=== PATIENT | male | born 1995 | race Caucasian/White ===

== ENCOUNTER 2022-03-15 19:53 | Emergency (ER) | payer OTHER ==
[2022-03-15 20:01] VITALS: BP 127/81; PULSE 82; TEMP 98.3; BMI 26.4
== END 2022-03-15 21:26 | disposition home or self-care (01) ==
LOC: JER 19:53
DX: T23.202A Burn of second degree of left hand, unspecified site, initial encounter (principal); X10.2XXA Contact with fats and cooking oils, initial encounter
CPT/HCPCS: 99283-25

== ENCOUNTER 2024-01-06 08:01 | Emergency (ER) | payer OTHER ==
[2024-01-06 08:19] VITALS: BP 138/87; PULSE 81; RESP 20; TEMP 97.8; BMI 26.4
[2024-01-06] MEDS ORDERED: MAG HYDROX/AL HYDROX/SIMETH 30 ML UNIT-DOSE CUP ONE (08:23)
[2024-01-06] MEDS ORDERED: FAMOTIDINE 20 MG TABLET ONE (08:23)
[2024-01-06] MEDS ORDERED: LOPERAMIDE HCL 2 MG CAPSULE ONE (08:23)
[2024-01-06] MEDS ORDERED: ONDANSETRON *ODT* 4 MG TABLET ONE (08:23)
[2024-01-06] MEDS: FAMOTIDINE 10 MG TABLET PO ONE (08:27)
[2024-01-06] MEDS: MAG HYDROX/AL HYDROX/SIMETH 30 ML UNIT-DOSE CUP PO ONE (08:27)
[2024-01-06] MEDS: LOPERAMIDE HCL 2 MG CAPSULE PO ONE (08:27)
[2024-01-06] MEDS: ONDANSETRON *ODT* 4 MG TABLET SL ONE (08:27)
== END 2024-01-06 09:22 | disposition home or self-care (01) ==
LOC: FER 08:01
DX: R11.2 Nausea with vomiting, unspecified (principal); R19.7 Diarrhea, unspecified; A05.9 Bacterial foodborne intoxication, unspecified
CPT/HCPCS: 99283-25; Q0162

== ENCOUNTER 2024-07-07 13:15 | Emergency (ER) | payer OTHER ==
[2024-07-07 13:20] VITALS: BP 126/83; PULSE 89; RESP 98; TEMP 98.1; BMI 24.4
[2024-07-07] MEDS ORDERED: TETRACAINE 0.5% OPHTH SOLN 2 ML BOTTLE ONE (14:25)
[2024-07-07] MEDS ORDERED: FLUORESCEIN NA 1 EA STRIP ONE (14:25)
[2024-07-07] MEDS: FLUORESCEIN NA 1 EA STRIP OS ONE (14:34)
[2024-07-07 17:30] LABS: HIV INTERPRETATION NEGATIVE (NEGATIVE)
== END 2024-07-07 14:40 | disposition home or self-care (01) ==
LOC: FER 13:15
DX: S00.12XA Contusion of left eyelid and periocular area, initial encounter (principal); W20.8XXA Other cause of strike by thrown, projected or falling object, initial encounter
CPT/HCPCS: 36415; 76512; 86803; 87389; 99284-25

== ENCOUNTER 2024-10-22 20:06 | Emergency (ER) | payer OTHER ==
[2024-10-22] MEDS ORDERED: KETOROLAC TROMETHAMINE 60 MG/2 ML VIAL ONE (20:15)
[2024-10-22 20:16] VITALS: BP 149/101; PULSE 84; RESP 18; TEMP 97.9; BMI 25.1
[2024-10-22] MEDS: KETOROLAC TROMETHAMINE 60 MG/2 ML VIAL IM ONE (20:32)
== END 2024-10-22 20:37 | disposition home or self-care (01) ==
LOC: FER 20:06
PROC: 3E0233Z Introduction of Anti-inflammatory into Muscle, Percutaneous Approach (ICD-10-PCS; principal; 2024-10-22)
DX: K64.0 First degree hemorrhoids (principal)
CPT/HCPCS: 99284-25